=== PATIENT | female | born 1990 | race Two or more races ===

== ENCOUNTER 2017-07-01 14:46 | Emergency (ER) | payer SELFPAY ==
[2017-07-01 14:54] VITALS: BP 115/71; PULSE 90; TEMP 98.3; BMI 24.9
[2017-07-01] MEDS ORDERED: ceFAZolin 2 GRAM PREMIX BAG IVPB STA (15:45)
[2017-07-01] MEDS ORDERED: KETOROLAC TROMETHAMINE 30 MG/1 ML VIAL IVPUSH ONE (15:47)
[2017-07-01] MEDS ORDERED: KETOROLAC TROMETHAMINE 30 MG/1 ML VIAL ONE (15:50)
[2017-07-01] MEDS ORDERED: CEFTRIAXONE 100 ML IVPB ONE (15:53)
--- NOTE | 2017-07-01 15:59 | PDOC ---
History of Present Illness - General Chief Complaint: Bite Stated Complaint: POSSIBLE INSECT BITE Time Seen by Provider: 07/01/17 15:20 History Source: Patient Exam Limitations: No Limitations - History of Present Illness Initial Comments: 07/01/17 15:47 27 yr female with no PMHX c/o painful red swollen right hand , started with insect bite 3 days ago. Pt noticed redness and swelling today. no fever or chills. Severity: Yes: moderate Location: reports: extremities (right hand ) Past History - Past Medical History Allergies/Adverse Reactions: Allergies Allergy/AdvReac Type Severity Reaction Status Date / Time Shellfish Allergy Verified 07/01/17 14:53 Home Medications: Ambulatory Orders Cephalexin [Keflex] 250 mg PO QID #28 capsule 07/01/17 Other medical history: DENIES. - Immunization History Immunization Up to Date: Yes - Psycho/Social/Smoking Cessation Hx Anxiety: No Suicidal Ideation: No Smoking Status: No Smoking History: Never smoked Number of Cigarettes Smoked Daily: 0 Hx Alcohol Use: Yes Drug/Substance Use Hx: No Substance Use Type: Alcohol Review of Systems - Review of Systems Able to Perform ROS?: Yes Comments:: 07/01/17 15:48 Is the patient limited Luxembourgish proficient: No Constitutional: No: Symptoms Reported HEENTM: No: Symptoms Reported Respiratory: No: Symptoms reported Cardiac (ROS): No: Symptoms Reported ABD/GI: No: Symptoms Reported : No: Symptoms Reported Musculoskeletal: Yes: See HPI *Physical Exam - Vital Signs Last Vital Signs Temp Pulse Resp BP Pulse Ox 98.3 F 90 18 115/71 100 07/01/17 14:51 07/01/17 14:51 07/01/17 14:51 07/01/17 14:51 07/01/17 14:51 - Physical Exam General Appearance: Yes: Nourished, Appropriately Dressed HEENT: positive: EOMI, VIANCA Musculoskeletal: positive: Normal Inspection Extremity: positive: Normal Capillary Refill, Tender, Swelling, Erythema, Other (right hand with lateral area 1cm abscess with surround erythema radiating to wrist , nv intact, FROM ) Integumentary: positive: Normal Color, Dry, Warm Neurologic: positive: Fully Oriented, Alert, Normal Mood/Affect, Normal Response , Motor Strength 5/5 Medical Decision Making - Medical Decision Making 07/01/17 15:49 cc: red swollen hand with insect bite that is now an abscess no fever or chills nv intact FROM afebrile non toxic will give one dose IVAB ancef 2gm will give toradol IVx1 for pain will dc home with keflex and 48hr follow up *DC/Admit/Observation/Transfer Diagnosis at time of Disposition: Cellulitis Qualifiers: Site of cellulitis: extremity Site of cellulitis of extremity: upper extremity Laterality: right Qualified Code(s): L03.113 - Cellulitis of right upper limb - Discharge Dispostion Disposition: HOME Condition at time of disposition: Good - Prescriptions Prescriptions: Cephalexin [Keflex] 250 mg PO QID #28 capsule - Patient Instructions Additional Instructions: keep the hand elevated in the sling at all times except to bathe and sleep take motrin 800mg every 8hrs for pain take the next dose of antibiotic tonight before bed and for the next 7 days return in 48hrs for follow up or see your primary care doctor in 48hrs return to ER if fever, drainage, increased redness or pain
[2017-07-01] MEDS ORDERED: CEFAZOLIN (PRE-DOCKED) 50 ML IVPB ONE (16:00)
== END 2017-07-01 17:02 | disposition home or self-care (01) ==
LOC: JERFT 14:46 → SUPCPDRO 14:46 → JERFT 17:02
PROC: 3E0333Z Introduction of Anti-inflammatory into Peripheral Vein, Percutaneous Approach (ICD-10-PCS; principal; 2017-07-01)
PROC: 3E03329 Introduction of Other Anti-infective into Peripheral Vein, Percutaneous Approach (ICD-10-PCS; 2017-07-01)
DX: S60.561A Insect bite (nonvenomous) of right hand, initial encounter (principal); L03.113 Cellulitis of right upper limb; W57.XXXA Bitten or stung by nonvenomous insect and other nonvenomous arthropods, initial encounter; Y93.89 Activity, other specified; Y92.89 Other specified places as the place of occurrence of the external cause; Y99.8 Other external cause status
CPT/HCPCS: 99281-25

== ENCOUNTER 2017-07-03 08:45 | Inpatient (IN) | payer SELFPAY ==
[2017-07-03 09:01] VITALS: BMI 25.7
--- NOTE | 2017-07-03 09:16 | PDOC ---
History of Present Illness - General Chief Complaint: Wound Infection Stated Complaint: REVISIT Time Seen by Provider: 07/03/17 08:59 History Source: Patient Exam Limitations: No Limitations - History of Present Illness Initial Comments: 07/03/17 09:12 27 yr female no PMHX with pain and swelling with abscess to right hand started 4 days ago from insect bite. Pt was seen in ER and started on antibiotics ( keflex and IV Ancef in ER). Pt here for wound check. Pt had been elvating hand in the sling. pt states today no fever or chills, swelling and redness is getting worse. Pt right hand dominant. 07/03/17 11:21 Timing/Duration: reports: getting worse Location: reports: hands (right dorsal surface ) Past History - Past Medical History Allergies/Adverse Reactions: Allergies Allergy/AdvReac Type Severity Reaction Status Date / Time Shellfish Allergy Verified 07/03/17 08:56 Home Medications: Ambulatory Orders Cephalexin [Keflex] 250 mg PO QID #28 capsule 07/01/17 Ibuprofen 600 mg PO TID PRN #20 tablet 07/01/17 Other medical history: denies - Immunization History Immunization Up to Date: Yes - Psycho/Social/Smoking Cessation Hx Anxiety: No Suicidal Ideation: No Smoking Status: No Smoking History: Never smoked Number of Cigarettes Smoked Daily: 0 Information on smoking cessation initiated: No Hx Alcohol Use: No Drug/Substance Use Hx: No Substance Use Type: None *Physical Exam - Vital Signs Last Vital Signs Temp Pulse Resp BP Pulse Ox 98 F 67 18 112/68 100 07/03/17 08:54 07/03/17 08:54 07/03/17 08:54 07/03/17 08:54 07/03/17 08:54 - Physical Exam General Appearance: Yes: Nourished, Appropriately Dressed HEENT: positive: EOMI, VIANCA Neck: positive: Supple Respiratory/Chest: positive: Lungs Clear, Normal Breath Sounds. negative: Chest Tender Cardiovascular: positive: Regular Rhythm, Regular Rate Musculoskeletal: positive: Normal Inspection Extremity: positive: Normal Capillary Refill, Normal Inspection, Normal Range of Motion, Tender, Swelling (right hand dorsal surface with indurated abscess [id number], draining yellow green pus , no streaking up arm , swelling noted to the fingers , nv intact) Integumentary: positive: Normal Color, Dry, Warm Neurologic: positive: Fully Oriented, Alert, Normal Mood/Affect, Normal Response , Motor Strength 5/5 Procedures - Incision and Drainage I&D Site: Right: Other (hand) Betadine cleansed: Yes Anesthesia: 1% Lidocaine Volume(ml): 4 Blade Size: 10 Attempts: 1 Complications: none Dressing: Yes ED Treatment Course - LABORATORY CBC & Chemistry Diagram: 07/03/17 09:50 07/03/17 09:50 - Consult/PCP Time Called: 09:18 (paged [phone] ) Case discussed with consulting physician: Rober Grimes Consult Reason/Comments: spoke to he will consult on pt in hospital today Medical Decision Making - Medical Decision Making 07/03/17 09:21 right hand abscess [id number] dorsal surface laterally draining yellow green pus nv intact swelling to fingers noted limited ROM of her fingers, decreased ability to fully make a fist 07/03/17 10:10 I have paged to discuss the case , for possible admission 07/03/17 10:12 07/03/17 10:57 seen and examined by in the ER agrees with plan to admit for IVAB hand consultation 07/03/17 11:22 spoke to agrees with plan to admit IVAB, warm compresses 4x day and keep hand elevated. pt agrees with plan and will be admitted to the hospital . *DC/Admit/Observation/Transfer Diagnosis at time of Disposition: Abscess Cellulitis Qualifiers: Site of cellulitis: extremity Site of cellulitis of extremity: upper extremity Laterality: right Qualified Code(s): L03.113 - Cellulitis of right upper limb - Discharge Dispostion Admit: Yes - Referrals Referrals: Silvino Dimas MD [Primary Care Provider] -
[2017-07-03 10:12] LABS: BASOPHIL 0.3 % (0-2.0); EOSINOPHIL 1.5 % (0-4.5); MCH 30.4 pg (25.7-33.7); MCHC 33.9 g/dl (32.0-36.0); MEAN CELL VOLUME 89.8 fl (80-96); MEAN PLT VOLUME 8.2 fl (7.5-11.1); NEUTROPHILS 74.5 % (42.8-82.8); PLATELET COUNT 210 K/MM3 (134-434); WHITE BLOOD COUNT 7.8 K/mm3 (4.0-10.0)
[2017-07-03 10:27] LABS: CALCIUM 9.1 mg/dL (8.5-10.1)
[2017-07-03 10:33] LABS: ALBUMIN 3.7 g/dl (3.4-5.0); ALK PHOS 75 U/L (45-117); ANION GAP 7 (8-16); BILIRUBIN,TOTAL 0.6 mg/dL (0.2-1.0); CO2 30 mmol/L (21-32); CREATININE 0.8 mg/dL (0.55-1.02); GLUCOSE,RANDOM 59 mg/dL (74-106); SGOT/AST 10 U/L (15-37); SGPT/ALT 12 U/L (12-78); TOT PROT 6.7 g/dl (6.4-8.2)
[2017-07-03] MEDS ORDERED: SULFAMETHOXAZOLE/TRIMETHOPRIM 800MG/160MG D.S. TABLET PO ONE (10:48)
[2017-07-03] MEDS ORDERED: SULFAMETHOXAZOLE/TRIMETHOPRIM 800MG/160MG D.S. TABLET ONE (10:55)
[2017-07-03] MEDS ORDERED: VANCOMYCIN 1,000 MG in DEXTROSE 5%-WATER - 250 ML IVPB STA (10:59)
[2017-07-03] MEDS ORDERED: VANCOMYCIN 1 GRAM (PRE-DOCKED) 250 ML IVPB ONE ×3 (11:02→11:25)
--- NOTE | 2017-07-03 11:48 | PDOC ---
*Physical Exam - Vital Signs Last Vital Signs Temp Pulse Resp BP Pulse Ox 98 F 67 18 112/68 100 07/03/17 08:54 07/03/17 08:54 07/03/17 08:54 07/03/17 08:54 07/03/17 08:54 - Physical Exam Comments: 07/03/17 11:43 afebrile. Right dorsal hand abscess with fluctuance over the Orth and fifth metacarpals, status post incision and drainage still with persistent purulent discharge. The fluctuance tracks proximally to the base of the fifth metacarpal, with surrounding soft tissue swelling and cellulitis extending to the mid forearm circumferentially. Full range of motion of the wrist and fingers, neurovascularly intact. ED Treatment Course - LABORATORY CBC & Chemistry Diagram: 07/03/17 09:50 07/03/17 09:50 - ADDITIONAL ORDERS Additional order review: Laboratory Results 07/03/17 09:50 Sodium 142 Potassium 3.9 Chloride 105 Carbon Dioxide 30 Anion Gap 7 L BUN 12 Creatinine 0.8 Creat Clearance w eGFR > 60 Random Glucose 59 L D Calcium 9.1 Total Bilirubin 0.6 D AST 10 L ALT 12 D Alkaline Phosphatase 75 D Total Protein 6.7 Albumin 3.7 07/03/17 09:50 RBC 4.61 MCV 89.8 MCHC 33.9 RDW 14.0 D MPV 8.2 Neutrophils % 74.5 Lymphocytes % 15.1 Monocytes % 8.6 Eosinophils % 1.5 Basophils % 0.3 - Medications Given in the ED: ED Medications Discontinued Medications Generic Name Dose Route Start Last Admin Trade Name Freq PRN Reason Stop Dose Admin Oxycodone/Acetaminophen 1 combo 07/03/17 09:11 07/03/17 09:14 Percocet 5/325 - PO 07/03/17 09:12 1 combo ONCE ONE Administration Trimethoprim/Sulfamethoxazole 1 each 07/03/17 10:48 07/03/17 11:39 Bactrim Ds - PO 07/03/17 10:49 Not Given ONCE ONE - Consult/PCP Time Called: 09:18 (paged [phone] ) Case discussed with consulting physician: Rober Grimes Consult Reason/Comments: spoke to he will consult on pt in hospital today Medical Decision Making - Medical Decision Making 07/03/17 11:44 Patient seen and evaluated with the nurse practitioner. I agree with the overall evaluation, assessment, and management with the following summary of visit: Healthy 27-year-old female for his second visit of infected insect bite to right hand, now complicated by abscess with induration/fluctuance and tracking cellulitis circumferentially to the right arm. Neurovascularly intact, no crepitus to suggest deep tissue infection, no joint pathology. Labs, cultures Incision and drainage IV antibiotics Hand consulted Admission *DC/Admit/Observation/Transfer Diagnosis at time of Disposition: Abscess Cellulitis Qualifiers: Site of cellulitis: extremity Site of cellulitis of extremity: upper extremity Laterality: right Qualified Code(s): L03.113 - Cellulitis of right upper limb - Referrals Referrals: Silvino Dimas MD [Primary Care Provider] - - Patient Instructions - Post Discharge Activity
--- NOTE | 2017-07-03 11:57 | HP ---
CHIEF COMPLAINT: R hand swelling after insect bite PCP: None HISTORY OF PRESENT ILLNESS: 27 yo F w no significant PMH presented to the ED with R hand tenderness, redness , and swelling x 5 days. Patient recalls that a bug got in her car while driving and bit her R hand. The medial dorsal side of R hand started to swell and become red shortly after. Patient was seen in [facility] ED and was given ancef x 1 and discharged home on keflex but with no relief. The worsening swelling and pain prompted her to re-visit the ED today. Denies fever, chills, n/v, chest pain, sob, abdominal pain, weakness. ER course was notable for: (1) vancomycin x 1 (2) afrebile and lab works wnl (3) hand surgery consulted Recent Travel: Denies PAST MEDICAL HISTORY: None PAST SURGICAL HISTORY: None Social History: Smoking: Denies Alcohol: Social Drugs: Denies Family History: Non-contributory Allergies Shellfish Allergy (Verified 07/03/17 08:56) HOME MEDICATIONS: Home Medications Medication Instructions Recorded Cephalexin [Keflex] 250 mg PO QID #28 capsule 07/01/17 Ibuprofen 600 mg PO TID PRN #20 tablet 07/01/17 REVIEW OF SYSTEMS CONSTITUTIONAL: Absent: fever, chills, diaphoresis, generalized weakness, malaise, loss of appetite, weight change HEENT: Absent: rhinorrhea, nasal congestion, throat pain, throat swelling, difficulty swallowing, mouth swelling, ear pain, eye pain, visual changes CARDIOVASCULAR: Absent: chest pain, syncope, palpitations, irregular heart rate, lightheadedness , peripheral edema RESPIRATORY: Absent: cough, shortness of breath, dyspnea with exertion, orthopnea, wheezing, stridor, hemoptysis GASTROINTESTINAL: Absent: abdominal pain, abdominal distension, nausea, vomiting, diarrhea, constipation, melena, hematochezia GENITOURINARY: Absent: dysuria, frequency, urgency, hesitancy, hematuria, flank pain, genital pain MUSCULOSKELETAL: R hand pain and swelling Absent: myalgia, arthralgia, joint swelling, back pain, neck pain SKIN: Absent: rash, itching, pallor HEMATOLOGIC/IMMUNOLOGIC: Absent: easy bleeding, easy bruising, lymphadenopathy, frequent infections ENDOCRINE: Absent: unexplained weight gain, unexplained weight loss, heat intolerance, cold intolerance NEUROLOGIC: Absent: headache, focal weakness or paresthesias, dizziness, unsteady gait, seizure, mental status changes, bladder or bowel incontinence PSYCHIATRIC: Absent: anxiety, depression, suicidal or homicidal ideation, hallucinations. PHYSICAL EXAMINATION Last Vital Signs Temp Pulse Resp BP Pulse Ox 98 F 67 18 112/68 100 07/03/17 08:54 07/03/17 08:54 07/03/17 08:54 07/03/17 08:54 07/03/17 08:54 GENERAL: AAO x 3, in no acute distress. LUNGS: CTAB HEART: RRR, normal S1 and S2 without murmur, rub or gallop. ABDOMEN: Soft, nontender, not distended, normoactive bowel sounds, no guarding, no rebound, no masses. UPPER EXTREMITIES: 5 x 5 cm in area with visible portal of entry (bug bite) oozing brown/white pus, no crepitus, Erythematous and edematous R medial dorsal hand, Unable to make a fist CBCD WBC 7.8 K/mm3 (4.0-10.0) 07/03/17 09:50 RBC 4.61 M/mm3 (3.60-5.2) 07/03/17 09:50 Hgb 14.0 GM/dL (10.7-15.3) 07/03/17 09:50 Hct 41.4 % (32.4-45.2) 07/03/17 09:50 MCV 89.8 fl (80-96) 07/03/17 09:50 MCHC 33.9 g/dl (32.0-36.0) 07/03/17 09:50 RDW 14.0 % (11.6-15.6) D 07/03/17 09:50 Plt Count 210 K/MM3 (134-434) 07/03/17 09:50 MPV 8.2 fl (7.5-11.1) 07/03/17 09:50 CMP Sodium 142 mmol/L (136-145) 07/03/17 09:50 Potassium 3.9 mmol/L (3.5-5.1) 07/03/17 09:50 Chloride 105 mmol/L (98-107) 07/03/17 09:50 Carbon Dioxide 30 mmol/L (21-32) 07/03/17 09:50 Anion Gap 7 (8-16) L 07/03/17 09:50 BUN 12 mg/dL (7-18) 07/03/17 09:50 Creatinine 0.8 mg/dL (0.55-1.02) 07/03/17 09:50 Creat Clearance w eGFR > 60 (>60) 07/03/17 09:50 Calcium 9.1 mg/dL (8.5-10.1) 07/03/17 09:50 Total Bilirubin 0.6 mg/dL (0.2-1.0) D 07/03/17 09:50 AST 10 U/L (15-37) L 07/03/17 09:50 ALT 12 U/L (12-78) D 07/03/17 09:50 Alkaline Phosphatase 75 U/L (45-117) D 07/03/17 09:50 Total Protein 6.7 g/dl (6.4-8.2) 07/03/17 09:50 Albumin 3.7 g/dl (3.4-5.0) 07/03/17 09:50 ASSESSMENT/PLAN: 27 yo F admitted to med-surg for R hand dorsal abscess I&D. R medial-dorsal hand cellulitis with abscess - Worsening, extending proximally towards forearm - Received vancomycin x 1 dose in ED - Start unasyn 3g Q6H - Oxycodone 5mg Q4H for pain control FEN - Fluid not indicated - Normal lytes - Regular diet Prophylaxis - DVT: early ambulation Dispo - Dr. Grimes will assess the patient for I&D in the PM - Discharge planning, transition to augmentin upon discharge [facility] PGY2 Pager: [phone] Visit type - Emergency Visit Emergency Visit: Yes ED Registration Date: 07/03/17 Care time: The patient presented to the Emergency Department on the above date and was hospitalized for further evaluation of their emergent condition. - New Patient This patient is new to me today: Yes Date on this admission: 07/03/17 - Critical Care Critical Care patient: No
--- NOTE | 2017-07-03 12:08 | HP ---
CHIEF COMPLAINT: swelling in her right hand after insect bite PCP:DR. Dimas HISTORY OF PRESENT ILLNESS: 27 Year old female with no past medical history who presented to the ED with 5 days history of swelling and redness in her right medial dorsal hand. Patient reported insect bite last while she was driving. she start itching and the swollen started next day and worsen over the last few days. Patient was seen [facility] ED and antibiotics was given to her ( ancef x 1 and discharged home on keflex) with no improvement. The worsening swelling and pain prompted her to re-visit the ED today. Patient denied seeing any tick after the insect bite. She Denies fever, chills, n/v, chest pain, sob, abdominal pain, weakness. ER course was notable for: (1) vancomycin x 1 (2) afrebile and lab works wnl (3) hand surgery consulted Recent Travel: None PAST MEDICAL HISTORY: None PAST SURGICAL HISTORY: None Social History: Smoking:denies Alcohol: 4 [place] on the weekend Drugs: She used to smoke weeds Family History: Unremarkable Allergies: Shellfish Allergy (Verified 07/03/17 08:56) HOME MEDICATIONS: Home Medications Medication Instructions Recorded Cephalexin [Keflex] 250 mg PO QID #28 capsule 07/01/17 Ibuprofen 600 mg PO TID PRN #20 tablet 07/01/17 REVIEW OF SYSTEMS CONSTITUTIONAL: Absent: fever, chills, diaphoresis, generalized weakness, malaise, loss of appetite, weight change HEENT: Absent: rhinorrhea, difficulty swallowing, mouth swelling, ear pain, eye pain , visual changes CARDIOVASCULAR: Absent: chest pain, syncope, palpitations, irregular heart rate, lightheadedness , peripheral edema RESPIRATORY: Absent: cough, shortness of breath, dyspnea with exertion, orthopnea, wheezing, stridor, hemoptysis GASTROINTESTINAL: Absent: abdominal pain, abdominal distension, nausea, vomiting, diarrhea, constipation, melena, hematochezia GENITOURINARY: Absent: dysuria, frequency, urgency, hesitancy, hematuria, flank pain, genital pain MUSCULOSKELETAL: Absent: myalgia, arthralgia, joint swelling, back pain, neck pain SKIN: Absent: rash, itching and redness at the abscess site pallor HEMATOLOGIC/IMMUNOLOGIC: Absent: easy bleeding, easy bruising, lymphadenopathy, frequent infections ENDOCRINE: Absent: unexplained weight gain, unexplained weight loss, heat intolerance, cold intolerance NEUROLOGIC: Absent: headache, focal weakness or paresthesias, dizziness, unsteady gait, seizure, mental status changes, bladder or bowel incontinence PSYCHIATRIC: Absent: anxiety, depression, suicidal or homicidal ideation, hallucinations. PHYSICAL EXAMINATION Vital Signs - 24 hr 07/03/17 08:54 Temperature 98 F Pulse Rate 67 Respiratory 18 Rate Blood Pressure 112/68 O2 Sat by Pulse 100 Oximetry (%) GENERAL: Awake, alert, and fully oriented, in no acute distress. HEAD: Normal with no signs of trauma. EYES: Pupils equal, sclera anicteric, conjunctiva clear. No lid lag. EARS, NOSE, THROAT: Ears normal, nares patent,. Moist mucous membranes. NECK: Normal range of motion, supple without lymphadenopathy, JVD, or masses. LUNGS: Breath sounds equal, clear to auscultation bilaterally. No wheezes, and no crackles. No accessory muscle use. HEART: Regular rate and rhythm, normal S1 and S2 without murmur, rub or gallop. ABDOMEN: Soft, nontender, not distended, normoactive bowel sounds, no guarding, no rebound, no masses. No hepatomegaly or splenomegaly. MUSCULOSKELETAL: Normal range of motion at all joints except the right hand limited due to swelling and pain. No bony deformities or tenderness. No CVA tenderness. UPPER EXTREMITIES: 2+ pulses, warm, well-perfused. No cyanosis. No clubbing. right hand abscess [id number] dorsal surface laterally draining yellow green pus nv intact swelling to fingers noted limited ROM of her fingers, decreased ability to fully make a fist LOWER EXTREMITIES: 2+ pulses, warm, well-perfused. No calf tenderness. No peripheral edema. NEUROLOGICAL: Normal speech. PSYCHIATRIC: Cooperative. Good eye contact. Appropriate mood and affect. SKIN: Warm, dry, normal turgor, no rashes , normal capillary refill. Laboratory Results - last 24 hr 07/03/17 07/03/17 07/03/17 09:50 09:50 11:35 WBC 7.8 RBC 4.61 Hgb 14.0 Hct 41.4 MCV 89.8 MCH 30.4 MCHC 33.9 RDW 14.0 D Plt Count 210 MPV 8.2 Neutrophils % 74.5 Lymphocytes % 15.1 Monocytes % 8.6 Eosinophils % 1.5 Basophils % 0.3 Sodium 142 Potassium 3.9 Chloride 105 Carbon Dioxide 30 Anion Gap 7 L BUN 12 Creatinine 0.8 Creat Clearance w eGFR > 60 Random Glucose 59 L D Calcium 9.1 Total Bilirubin 0.6 D AST 10 L ALT 12 D Alkaline Phosphatase 75 D Total Protein 6.7 Albumin 3.7 Urine HCG, Qual Negative ASSESSMENT/PLAN: 27 Year Old femal with no PMX who returned to the ED with 5 days h/o right hand medial dorsal abscess after insect bite. She was admitted to [facility] for further management. # Right medical dorsal hand cellulitis with abscess * worsening symptoms despite out patient Antibiotics treatment * swollen extended towards the fingers and the forearm * received Vancomycin one dose in the ED * Start Unasyn IV 3 g Q6H * Oxycodone 5 mg PO Q4h for pain control * hand surgery was consulted for incision and drainage * * #F/E/N * F: on no fluids * E: WNL * N: regular diet #Prophylaxis * DVT: early ambulation +Dispo * Dr. Grimes will assess the patient for I&D * Discharge planning, transition to Augmentin upon discharge Visit type - Emergency Visit Emergency Visit: Yes ED Registration Date: 07/03/17 Care time: The patient presented to the Emergency Department on the above date and was hospitalized for further evaluation of their emergent condition. - New Patient This patient is new to me today: Yes Date on this admission: 07/03/17 - Critical Care Critical Care patient: No
--- NOTE | 2017-07-03 14:47 | PN ---
Teaching Attending Note Name of Resident: Jg Tamayo ATTENDING PHYSICIAN STATEMENT I saw and evaluated the patient. I reviewed the resident's note and discussed the case with the resident. I agree with the resident's findings and plan as documented. SUBJECTIVE: This is a 27-year-old woman with no significant past medical history who comes to the ER today for a wound check. She says that on 06/28, she felt itching on her right hand while driving. She thought it was an insect bite. On 07/01 the hand became red and swollen. She had no fevers or chills. She came to the ER and was diagnosed with an abscess of her right hand. She was treated with Ancef and was discharged on Keflex. She feels it has worsened despite the antibiotic. She still has no fever or chills. OBJECTIVE: Vital Signs Period Temp Pulse Resp BP Sys/Farley Pulse Ox Last 24 Hr 98 F 67-67 18-18 108-112/57-68 100-100 HEART: S1S2, RRR LUNGS: Clear ABDOMEN: Soft, non-tender, non-distended, normal BS EXTREMITIES: Right hand and forearm swollen. 3 cm x 5 cm area of fluctuance and induration with yellow drainage on dorsal surface of right hand over 4th and 5th metacarpals ASSESSMENT AND PLAN: This is a 27-year-old woman with no significant past medical history who presented to the ER for follow-up on an abscess of her right hand that was diagnosed on 07/01. 1. Right hand abscess - Failed outpatient treatment with Keflex - Given Vancomycin IV in ER - IV Unasyn - Hand surgery consult for I&D
[2017-07-03] MEDS: AMPICILLIN NA/SULBACTAM NA 3 GM in SODIUM CHLORIDE 100 ML IVPB SCH ×2 (15:55→20:49)
[2017-07-03] MEDS ORDERED: LIDOCAINE HCL 1%, 10 MG/ML (20ML VIAL) ONE (16:00)
[2017-07-03] MEDS: oxyCODONE HCL 5 MG TABLET PO PRN ×2 (16:03→21:16)
[2017-07-03] MEDS ORDERED: oxyCODONE HCL 5 MG TABLET ONE (16:05)
[2017-07-03] MEDS ORDERED: PT OWN MED DRAWER 7, Y5N ONE ×2 (17:56→20:11)
[2017-07-03] MEDS ORDERED: LIDOCAINE 2%/EPINEPHRINE 1:100000 (50 ML MD VIAL) INF ONE (21:00)
[2017-07-03] MEDS: ACETAMINOPHEN 325 MG TABLET (FP) PO PRN (21:16)
[2017-07-03] MEDS ORDERED: ACETAMINOPHEN 325 MG TABLET (FP) PO ONE (23:45)
[2017-07-03] MEDS ORDERED: oxyCODONE HCL 5 MG TABLET PO ONE (23:45)
[2017-07-04] MEDS: oxyCODONE HCL 5 MG TABLET PO PRN ×3 (01:41→21:08)
[2017-07-04] MEDS: ACETAMINOPHEN 325 MG TABLET (FP) PO PRN ×4 (01:42→21:09)
[2017-07-04] MEDS: AMPICILLIN NA/SULBACTAM NA 3 GM in SODIUM CHLORIDE 100 ML IVPB SCH ×2 (02:17→10:08)
[2017-07-04 08:31] LABS: BASOPHIL 0.2 % (0-2.0); EOSINOPHIL 1.7 % (0-4.5); MCH 30.1 pg (25.7-33.7); MCHC 33.3 g/dl (32.0-36.0); MEAN CELL VOLUME 90.3 fl (80-96); MEAN PLT VOLUME 8.4 fl (7.5-11.1); NEUTROPHILS 60.9 % (42.8-82.8); PLATELET COUNT 160 K/MM3 (134-434); RDW 13.8 % (11.6-15.6); WHITE BLOOD COUNT 5.9 K/mm3 (4.0-10.0)
--- NOTE | 2017-07-04 08:38 | PN ---
Physical Exam: SUBJECTIVE: Patient seen and examined at bed side. Right hand abscess was drained by hand surgeon, swollen is improved. Ibuprofen was given for pain. She denies fever, chills , CP, SOB, N/V/D/C. OBJECTIVE: Vital Signs Period Temp Pulse Resp BP Sys/Farley Pulse Ox Last 24 Hr 97.5 F-98.3 F 62-85 16-18 108-135/57-72 99-100 GENERAL: The patient is awake, alert, and fully oriented, in no acute distress. HEAD: Normal with no signs of trauma. EYES: PERRL, sclera anicteric, conjunctiva clear. No ptosis. ENT: Ears normal, , moist mucous membranes. NECK: Trachea midline, full range of motion, supple. LUNGS: Breath sounds equal, clear to auscultation bilaterally, no wheezes, no crackles, no accessory muscle use. HEART: Regular rate and rhythm, S1, S2 without murmur, rub or gallop. ABDOMEN: Soft, nontender, nondistended, normoactive bowel sounds, no guarding, no rebound, no hepatosplenomegaly, no masses. EXTREMITIES: 2+ pulses, warm, well-perfused, no edema. Right hand less swollen with FROM. NEUROLOGICAL: Normal speech, gait not observed. PSYCH: Normal mood, normal affect. SKIN: Warm, dry, normal turgor, no rashes or lesions noted Laboratory Results - last 24 hr 07/03/17 07/04/17 11:35 08:05 WBC 5.9 RBC 4.09 Hgb 12.3 D Hct 36.9 MCV 90.3 MCH 30.1 MCHC 33.3 RDW 13.8 Plt Count 160 D MPV 8.4 Neutrophils % 60.9 Lymphocytes % 26.2 D Monocytes % 11.0 H Eosinophils % 1.7 Basophils % 0.2 Urine HCG, Qual Negative Active Medications Generic Name Dose Route Start Last Admin Trade Name Freq PRN Reason Stop Dose Admin Acetaminophen 650 mg 07/03/17 12:02 07/04/17 06:25 Tylenol - PO 650 mg Q4H PRN Administration FEVER OR PAIN Ampicillin Sodium/Sulbactam 100 mls @ 200 mls/hr 07/03/17 15:00 07/04/17 02:17 Sodium 3 gm/ Sodium Chloride IVPB 200 mls/hr Q6H-IV JESUS Administration Oxycodone HCl 5 mg 07/03/17 13:41 07/04/17 06:25 Roxicodone - PO 5 mg Q4H PRN Administration PAIN 07/03/17 11:00 Blood - Peripheral Venous Blood Culture - Preliminary NO GROWTH OBTAINED AFTER 24 HOURS, INCUBATION TO CONTINUE FOR 4 DAYS. 07/03/17 09:11 Blood - Peripheral Venous Blood Culture - Preliminary NO GROWTH OBTAINED AFTER 24 HOURS, INCUBATION TO CONTINUE FOR 4 DAYS. 07/03/17 09:11 Abscess Wound Culture - Preliminary Presumptive Mrsa (Pbp2a Pos) ASSESSMENT/PLAN: 27 Year Old female with no PMHX who returned to the ED with 5 days h/o right hand medial dorsal abscess after insect bite. She was admitted to [facility] for I &D after failed out patient ABx # Right medical dorsal hand cellulitis with abscess * failed out patient Antibiotics treatment * swollen extended towards the fingers and the forearm, improved after I&D * received Vancomycin one dose in the ED * DC Unasyn IV 3 g Q6H per ID * hand surgery performed incision and drainage and recommend removed the dressing and apply warm pack Q4 hr , keep the arm elevated. * Wound culture shows presumptive MRSA * Blood culture did not show any growth over 24 Hr * one dose vancomycin 1 g IV started * ID consult recommended to Omid Donovan and start IV Vanco 1 gm Q12 for 7 days, Suggest HIV screening * Vanco trop tomorrow after med night 1.30 AM before the 4th dose. * Contact Isolation * IV Ibuprofen 800 mg Q8Hr PRN for pain * F/u ESR, CRP * Wound care * #F/E/N * F: on no fluids * E: WNL * N: regular diet #Prophylaxis * DVT: early ambulation +Dispo * I&D was performed by * Discharge planning, transition to clindamycin upon discharge
[2017-07-04] MEDS ORDERED: POLYETHYLENE GLYCOL 3350 119 GM BTL PO ONE (08:39)
[2017-07-04] MEDS ORDERED: PT OWN MED DRAWER 7, Y5N ONE (10:06)
[2017-07-04] MEDS ORDERED: VANCOMYCIN 1 GRAM (PRE-DOCKED) 250 ML IVPB ONE (10:30)
--- NOTE | 2017-07-04 11:20 | PN ---
Teaching Attending Note Name of Resident: Yon Dowd ATTENDING PHYSICIAN STATEMENT I saw and evaluated the patient. I reviewed the resident's note and discussed the case with the resident. I agree with the resident's findings and plan as documented. SUBJECTIVE: admitted with abscess with cellulitis of her right hand no fevers or chills didnot respond to po keflex-seen 07/01 in ED drained in ED by hand surgeon and packed Mom and brother with prior history of MRSA OBJECTIVE: Vital Signs Period Temp Pulse Resp BP Sys/Farley Pulse Ox Last 24 Hr 97.5 F-98.3 F 62-85 16-18 108-135/57-72 99-100 cor-rrr llungs clear abd soft,nt ext +swelling of the right hand, +FROM, wound packed CBC, BMP 07/04/17 08:05 07/03/17 09:50 Microbiology 07/03/17 11:00 Blood - Peripheral Venous Blood Culture - Preliminary NO GROWTH OBTAINED AFTER 24 HOURS, INCUBATION TO CONTINUE FOR 4 DAYS. 07/03/17 09:11 Blood - Peripheral Venous Blood Culture - Preliminary NO GROWTH OBTAINED AFTER 24 HOURS, INCUBATION TO CONTINUE FOR 4 DAYS. 07/03/17 09:11 Abscess Wound Culture - Preliminary Presumptive Mrsa (Pbp2a Pos) ASSESSMENT AND PLAN: MRSA abscess with cellulitis of the right hand contact isolation vancomycin wound care should be offered HIV testing esr/crp Problem List - Problems (1) MRSA infection Code(s): A49.02 - METHICILLIN RESIS STAPH INFECTION, UNSP SITE (2) Abscess Code(s): L02.91 - CUTANEOUS ABSCESS, UNSPECIFIED (3) Cellulitis Code(s): L03.90 - CELLULITIS, UNSPECIFIED Qualifiers: Site of cellulitis: extremity Site of cellulitis of extremity: upper extremity Laterality: right Qualified Code(s): L03.113 - Cellulitis of right upper limb
--- NOTE | 2017-07-04 11:23 | CONSULT ---
Consult Consult Specialty:: Infectious Diseases Reason for Consultation:: Abscess - History of Present Illness Chief Complaint: insect bite History of Present Illness: 27 year old female with no past medical history presented to the hospital yesterday for a non improving R hand abscess. She states that it started last , when she felt itching the dorsum of her right hand. She admits to scratching it multiple times, after which the presumed bite was exacerbated by swelling of her R hand and surrounding erythema. She went to the ED here at [place] on Sunday, was prescribed cephalexin and sent home. Patient reports that the abscess was painful and not improving on antibiotics, so she returned yesterday. The abscess was drained and cultured (MRSA). Patient states that she has vomited twice, but has not had nausea for the majority of the time since this started Patient denies fever, chills, chest pain, SOB, abdominal pain. Patient states she has a family history of MRSA infection. She has a pet dog. 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 HIV information not taken due to family in the room (Will f/u). She has not traveled recently and has lived in this area. Denies smoking or drinking history. - History Source History Provided By: Patient Limitations to Obtaining History: No Limitations - Alcohol/Substance Use Hx Alcohol Use: No - Smoking History Smoking history: Never smoked Aproximately how many cigarettes per day: 0 Home Medications - Allergies Allergies/Adverse Reactions: Allergies Allergy/AdvReac Type Severity Reaction Status Date / Time Shellfish Allergy Verified 07/03/17 08:56 - Home Medications Home Medications: Ambulatory Orders Cephalexin [Keflex] 250 mg PO QID #28 capsule 07/01/17 Ibuprofen 600 mg PO TID PRN #20 tablet 07/01/17 Review of Systems - Review of Systems Constitutional: reports: No Symptoms. denies: Chills, Fever Eyes: reports: No Symptoms HENT: reports: No Symptoms Neck: reports: No Symptoms Cardiovascular: reports: No Symptoms. denies: Chest Pain, Palpitations, Shortness of Breath Respiratory: reports: No Symptoms. denies: Cough, SOB, Wheezing Gastrointestinal: reports: No Symptoms. denies: Abdominal Pain, Nausea, Vomiting Musculoskeletal: reports: Extremity Pain (Pain in her R hand) Integumentary: reports: Lesions (R hand insect bite) Neurological: reports: No Symptoms Endocrine: reports: No Symptoms Hematology/Lymphatic: reports: No Symptoms Psychiatric: reports: No Symptoms Physical Exam Vital Signs: Vital Signs Temperature 98.3 F 07/04/17 05:00 Pulse Rate 62 07/04/17 05:00 Respiratory Rate 18 07/04/17 05:00 Blood Pressure 125/67 07/04/17 05:00 O2 Sat by Pulse Oximetry (%) 100 07/03/17 21:00 Constitutional: Yes: Well Nourished, No Distress, Calm Eyes: Yes: WNL, Conjunctiva Clear, EOM Intact HENT: Yes: WNL, Atraumatic, Normocephalic Neck: Yes: WNL, Supple, Trachea Midline Cardiovascular: Yes: WNL, Regular Rate and Rhythm, S1, S2. No: Gallop, Murmur, Rub Respiratory: Yes: WNL, Regular, CTA Bilaterally. No: Accessory Muscle Use, Rales, Rhonchi, SOB, Stridor, Wheezes Gastrointestinal: Yes: WNL, Normal Bowel Sounds, Soft. No: Tenderness Musculoskeletal: Yes: WNL Extremities: Yes: Other (Abscess noted on dorsum of R hand) Edema: Yes (Swelling noted R hand) Peripheral Pulses WNL: Yes Integumentary: Yes: Other (Drained remnant of abscess noted on dorsum of R hand. Not currently draining purulent fluid) Wound/Incision: Yes: Clean/Dry, Dressing Dry and Intact Neurological: Yes: WNL, Alert, Oriented, Cran Nerves II-XII Intact ...Motor Strength: WNL Psychiatric: Yes: WNL, Alert, Oriented Labs: CBC, BMP 07/04/17 08:05 Problem List - Problems (1) Abscess Code(s): L02.91 - CUTANEOUS ABSCESS, UNSPECIFIED (2) MRSA infection Code(s): A49.02 - METHICILLIN RESIS STAPH INFECTION, UNSP SITE Assessment/Plan 27 year old female with no past medical history seen by ID for drained abscess on dorsum of right hand with wound cultures positive for MRSA. -d/c unasyn as this is not adequate to cover MRSA -begin vancomycin 1g IV Q12h -place patient on contact precautions for MRSA -ordered CRP/ESR -keep wound clean/wound care -vanc level in AM
[2017-07-04] MEDS: IBUPROFEN 800 MG/8 ML IJ IVPB PRN ×2 (11:34→12:40)
--- NOTE | 2017-07-04 12:21 | PN ---
Teaching Attending Note Name of Resident: Jg Tamayo ATTENDING PHYSICIAN STATEMENT I saw and evaluated the patient. I reviewed the resident's note and discussed the case with the resident. I agree with the resident's findings and plan as documented. SUBJECTIVE: Patient has no complaints. Had I&D of right hand abscess yesterday. OBJECTIVE: Vital Signs Period Temp Pulse Resp BP Sys/Farley Pulse Ox Last 24 Hr 97.5 F-98.3 F 60-85 16-18 100-135/57-72 99-100 HEART: S1S2, RRR LUNGS: Clear ABDOMEN: Soft, non-tender, non-distended, normal BS EXTREMITIES: No edema ASSESSMENT AND PLAN: This is a 27-year-old woman with no significant past medical history who presented to the ER for follow-up on an abscess of her right hand that was diagnosed on 07/01. 1. MRSA abscess of right hand - s/p I&D 07/03 - On Vancomycin
[2017-07-04] MEDS: VANCOMYCIN 1 GRAM (PRE-DOCKED) 250 ML IVPB SCH ×2 (14:08→14:11)
[2017-07-04] MEDS ORDERED: IBUPROFEN 600 MG TABLET (FP) PO PRN (16:23)
[2017-07-04] MEDS ORDERED: DOCUSATE SODIUM 100 MG CAPSULE (FP) PO ONE (16:24)
[2017-07-05] MEDS: VANCOMYCIN 1 GRAM (PRE-DOCKED) 250 ML IVPB SCH ×2 (02:02→14:16)
--- NOTE | 2017-07-05 08:11 | PN ---
Physical Exam: SUBJECTIVE: Patient seen and examined at bed side. No acute events over night.Her right hand wound is dry and clean, swilling is better than yesterday. She denies any CP, Palpitation, fever, chills, N/V/D/C. OBJECTIVE: Vital Signs Period Temp Pulse Resp BP Sys/Farley Pulse Ox Last 24 Hr 98.0 F-98.7 F 60-61 18-20 100-139/64-68 100-100 GENERAL: The patient is awake, alert, and fully oriented, in no acute distress. HEAD: Normal with no signs of trauma. EYES: PERRL, sclera anicteric, conjunctiva clear. No ptosis. ENT: moist mucous membranes. NECK: Trachea midline, full range of motion, supple. LUNGS: Breath sounds equal, clear to auscultation bilaterally, no wheezes, no crackles, no accessory muscle use. HEART: Regular rate and rhythm, S1, S2 without murmur, rub or gallop. ABDOMEN: Soft, nontender, nondistended, normoactive bowel sounds, no guarding, no rebound, no hepatosplenomegaly, no masses. EXTREMITIES: 2+ pulses, warm, well-perfused, no edema. NEUROLOGICAL: Normal speech, gait not observed. PSYCH: Normal mood, normal affect. SKIN: Warm, dry, normal turgor, no rashes or lesions noted Laboratory Results - last 24 hr 07/04/17 07/04/17 07/04/17 08:05 15:43 15:43 WBC 5.9 RBC 4.09 Hgb 12.3 D Hct 36.9 MCV 90.3 MCH 30.1 MCHC 33.3 RDW 13.8 Plt Count 160 D MPV 8.4 Neutrophils % 60.9 Lymphocytes % 26.2 D Monocytes % 11.0 H Eosinophils % 1.7 Basophils % 0.2 ESR 7 C-Reactive Protein 0.6 H Active Medications Generic Name Dose Route Start Last Admin Trade Name Freq PRN Reason Stop Dose Admin Acetaminophen 650 mg 07/03/17 12:02 07/04/17 21:09 Tylenol - PO 650 mg Q4H PRN Administration FEVER OR PAIN Vancomycin HCl 250 mls @ 166.667 mls/hr 07/04/17 14:00 07/05/17 02:02 Vancomycin (Pre-Docked) IVPB 166.667 mls/hr BID@0200,1400 [facility] Administration Protocol Ibuprofen 600 mg 07/04/17 16:23 Motrin - PO Q6H PRN FEVER Oxycodone HCl 5 mg 07/03/17 13:41 07/04/17 21:08 Roxicodone - PO 5 mg Q4H PRN Administration PAIN ASSESSMENT/PLAN: 27 Year Old female with no PMHX who returned to the ED with 5 days h/o right hand medial dorsal abscess after insect bite. She was admitted to [facility] for I &D after failed out patient ABx # Right medical dorsal hand cellulitis with abscess * failed out patient Antibiotics treatment * swollen extended towards the fingers and the forearm, improved after I&D * received Vancomycin one dose in the ED * DC Unasyn IV 3 g Q6H per ID and start [id number] mg IV Q12 per ID * hand surgery performed incision and drainage on 07/03 and recommend removed the dressing and apply warm pack Q4 hr , keep the arm elevated. * Wound culture shows presumptive MRSA * Blood culture did not show any growth over 24 Hr * ID consult recommended to Dc Unasyn and start IV Vanco 1 gm Q12 for 7 days, Suggest HIV screening * Vanco trop tomorrow july 06 1.30 AM before the 4th dose. * Contact Isolation * Ibuprofen 600 mg PO Q6Hr PRN for pain * ESR 7, CRP 0.6 * Wound care * ID saw her today and clear her to Discharge on Clindamycin 300 mg Po TID for 5 days.(after seen the sensitivity test) #F/E/N * F: on no fluids * E: WNL * N: regular diet #Prophylaxis * DVT: early ambulation +Dispo * I&D was performed by on 07/03 * Discharge planning, transition to clindamycin upon discharge Visit type - Emergency Visit Emergency Visit: Yes ED Registration Date: 07/03/17 Care time: The patient presented to the Emergency Department on the above date and was hospitalized for further evaluation of their emergent condition. - New Patient This patient is new to me today: No - Critical Care Critical Care patient: No
[2017-07-05 08:46] LABS: BASOPHIL 0.3 % (0-2.0); EOSINOPHIL 1.7 % (0-4.5); MCH 30.6 pg (25.7-33.7); MCHC 34.3 g/dl (32.0-36.0); MEAN CELL VOLUME 89.3 fl (80-96); MEAN PLT VOLUME 8.6 fl (7.5-11.1); NEUTROPHILS 59.9 % (42.8-82.8); PLATELET COUNT 176 K/MM3 (134-434); RDW 13.5 % (11.6-15.6); WHITE BLOOD COUNT 5.6 K/mm3 (4.0-10.0)
--- NOTE | 2017-07-05 08:55 | PN ---
Progress Note, Physician History of Present Illness: Medical History 27 year old female with no past medical history presented to the hospital two days ago for a non improving R hand abscess. She states that it started last , when she felt itching the dorsum of her right hand. She admits to scratching it multiple times, after which the presumed bite was exacerbated by swelling of her R hand and surrounding erythema. She went to the ED here at [place] on Sunday, was prescribed cephalexin and sent home. Patient reports that the abscess was painful and not improving on antibiotics, so she returned yesterday. The abscess was drained and cultured (MRSA). Patient states that she has vomited twice, but has not had nausea for the majority of the time since this started Patient denies fever, chills, chest pain, SOB, abdominal pain. Patient states she has a family history of MRSA infection. She has a pet dog. 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 HIV information not taken due to family in the room (Will f/u). She has not traveled recently and has lived in this area. Denies smoking or drinking history. Patient seen and examined at bedside. Patient feels better, no current pain in her R hand. Reports decreased swelling. Denies drainage. Denies fevers, chills, nausea, vomiting, chest pain, SOB, abdominal pain. - Current Medication List Current Medications: Active Medications Acetaminophen (Tylenol -) 650 mg PO Q4H PRN PRN Reason: FEVER OR PAIN Last Admin: 07/04/17 21:09 Dose: 650 mg Vancomycin HCl (Vancomycin (Pre-Docked)) 250 mls @ 166.667 mls/hr IVPB BID@0200 ,1400 JESUS PRN Reason: Protocol Last Admin: 07/05/17 02:02 Dose: 166.667 mls/hr Ibuprofen (Motrin -) 600 mg PO Q6H PRN PRN Reason: FEVER Oxycodone HCl (Roxicodone -) 5 mg PO Q4H PRN PRN Reason: PAIN Last Admin: 07/04/17 21:08 Dose: 5 mg - Objective Vital Signs: Vital Signs Temperature 98.7 F 07/05/17 06:25 Pulse Rate 61 07/05/17 06:25 Respiratory Rate 18 07/05/17 06:25 Blood Pressure 139/64 07/05/17 06:25 O2 Sat by Pulse Oximetry (%) 100 07/04/17 21:00 Constitutional: Yes: Well Nourished, No Distress, Calm Eyes: Yes: WNL, Conjunctiva Clear, EOM Intact HENT: Yes: WNL, Atraumatic, Normocephalic Neck: Yes: WNL, Supple, Trachea Midline Cardiovascular: Yes: WNL, Regular Rate and Rhythm, S1, S2. No: Gallop, Murmur, Rub Respiratory: Yes: WNL, Regular, CTA Bilaterally. No: Rales, Stridor, Wheezes Gastrointestinal: Yes: WNL, Normal Bowel Sounds, Soft. No: Tenderness Musculoskeletal: Yes: WNL Extremities: Yes: Other (Dry dressing applied on dorsum of R hand) Edema: No Peripheral Pulses WNL: Yes Integumentary: Yes: Incision (Dry dressing applied on dorsum of R hand, not draining any fluid, no surrounding swelling) Wound/Incision: Yes: Clean/Dry Neurological: Yes: WNL, Alert, Oriented, Cran Nerves II-XII Intact ...Motor Strength: WNL Psychiatric: Yes: WNL, Alert, Oriented Labs: CBC, BMP 07/05/17 07:00 Problem List - Problems (1) Abscess Code(s): L02.91 - CUTANEOUS ABSCESS, UNSPECIFIED (2) MRSA infection Code(s): A49.02 - METHICILLIN RESIS STAPH INFECTION, UNSP SITE Assessment/Plan 27 year old female with no past medical history seen by ID for drained abscess on dorsum of right hand with wound cultures positive for MRSA. -patient appears clinically improved. Wound is dry, not draining fluid. Swelling has subsided in the R hand. There is little to no pain or tenderness. No surrounding cellulitis -contact precautions for MRSA -keep wound clean/wound care -proper hand hygiene advised and potential for transmission of MRSA with contact -discharge on outpatient oral clindamycin 300mg TID 5 days
[2017-07-05 09:10] LABS: ANION GAP 7 (8-16); CALCIUM 8.9 mg/dL (8.5-10.1); CO2 27 mmol/L (21-32); GLUCOSE,RANDOM 74 mg/dL (74-106)
[2017-07-05 09:12] LABS: CREATININE 0.6 mg/dL (0.55-1.02)
--- NOTE | 2017-07-05 14:52 | PN ---
Teaching Attending Note Name of Resident: Yon Dowd ATTENDING PHYSICIAN STATEMENT I saw and evaluated the patient. I reviewed the resident's note and discussed the case with the resident. I agree with the resident's findings and plan as documented. SUBJECTIVE:VaNCOMYCIN OBJECTIVE:HAND IMPROVED DRAINAGE NO CELLULITIS ASSESSMENT AND PLAN: Microbiology 07/03/17 09:11 Abscess Gram Stain - Final 07/03/17 09:11 Abscess Wound Culture - Final Mr S Aureus 07/03/17 21:56 Abscess Wound Culture - Preliminary Presumptive Mrsa (Pbp2a Pos) Laboratory Tests 07/05/17 07/05/17 07/05/17 07:00 07:00 13:20 WBC 5.6 Hgb 13.2 Plt Count 176 Anion Gap 7 L BUN 9 D Creatinine 0.6 D HIV 1&2 Antibody Screen Pending HIV P24 Antigen Pending ASSESSMENT MRSA ssti PLAN DISCHARGE ON ORAL CLINDAYMCIN 300MTID FOR 5 DAYS ADVISED ABOUT HAND HYGIENE AND POTENTIAL FOR TRANSMISSION WITH CONTACT PERSONS DORIAN NUÑEZ
--- NOTE | 2017-07-05 15:07 | PN ---
Teaching Attending Note Name of Resident: Jg Tamayo ATTENDING PHYSICIAN STATEMENT I saw and evaluated the patient. I reviewed the resident's note and discussed the case with the resident. I agree with the resident's findings and plan as documented. SUBJECTIVE: OBJECTIVE: Vital Signs Period Temp Pulse Resp BP Sys/Farley Pulse Ox Last 24 Hr 97.8 F-98.7 F 60-61 18-20 110-139/64-70 100-100 ASSESSMENT AND PLAN:
[2017-07-05 15:20] LABS: HIV 1 & 2 AB NEGATIVE; HIV 1 AGp24 NEGATIVE
[2017-07-05 15:31] VITALS: BP 115/62; PULSE 72; TEMP 99.1
--- NOTE | 2017-07-05 18:19 | DS ---
Physical Exam: SUBJECTIVE: Patient seen and examined at bed side . She is stable to be discharged home on oral antibiotics. OBJECTIVE: Vital Signs Period Temp Pulse Resp BP Sys/Farley Pulse Ox Last 24 Hr 97.8 F-99.1 F 60-72 18-18 110-139/62-70 100-100 PHYSICAL EXAM GENERAL: The patient is awake, alert, and fully oriented, in no acute distress. HEAD: Normal with no signs of trauma. EYES: PERRL, extraocular movements intact, sclera anicteric, conjunctiva clear. ENT: Ears normal, nares patent, oropharynx clear without exudates, moist mucous membranes. NECK: Trachea midline, full range of motion, supple. LUNGS: Breath sounds equal, clear to auscultation bilaterally, no wheezes, no crackles, no accessory muscle use. HEART: Regular rate and rhythm, S1, S2 without murmur, rub or gallop. ABDOMEN: Soft, nontender, nondistended, normoactive bowel sounds, no guarding, no rebound, no hepatosplenomegaly, no masses. EXTREMITIES: 2+ pulses, warm, well-perfused, no edema. NEUROLOGICAL: Cranial nerves II through XII grossly intact. Normal speech, gait not observed. PSYCH: Normal mood, normal affect. SKIN: Warm, dry, normal turgor, no rashes or lesions noted. LABS Laboratory Results - last 24 hr 07/05/17 07/05/17 07/05/17 07:00 07:00 13:20 WBC 5.6 RBC 4.31 Hgb 13.2 Hct 38.5 MCV 89.3 MCH 30.6 MCHC 34.3 RDW 13.5 Plt Count 176 MPV 8.6 Neutrophils % 59.9 Lymphocytes % 29.5 Monocytes % 8.6 Eosinophils % 1.7 Basophils % 0.3 Sodium 139 Potassium 3.7 Chloride 105 Carbon Dioxide 27 Anion Gap 7 L BUN 9 D Creatinine 0.6 D Random Glucose 74 D Calcium 8.9 HIV 1&2 Antibody Screen Negative HIV P24 Antigen Negative Hepatitis Profile WBC 5.6 K/mm3 (4.0-10.0) 07/05/17 07:00 RBC 4.31 M/mm3 (3.60-5.2) 07/05/17 07:00 Hgb 13.2 GM/dL (10.7-15.3) 07/05/17 07:00 Hct 38.5 % (32.4-45.2) 07/05/17 07:00 MCV 89.3 fl (80-96) 07/05/17 07:00 Neutrophils % 59.9 % (42.8-82.8) 07/05/17 07:00 Lymphocytes % 29.5 % (8-40) 07/05/17 07:00 Monocytes % 8.6 % (3.8-10.2) 07/05/17 07:00 Basophils % 0.3 % (0-2.0) 07/05/17 07:00 HOSPITAL COURSE: Date of Admission:07/03/17 Date of Discharge: 07/05/17 Patient was admitted to the hospital due to an abscess on the dorsal of her right arm. she presented to the ER for wound check after failed treatment with antibiotics as out patient. The wound was incised and drained by the hand surgeon, wound culture came back positive for MRSA. She was treated with IV vancomycin 100 mg Q12 HR, after we received the the sensitivity ID clear her to be discharged on PO Clindamycin 300 mg TID for 5 days. Patient is stable and ready to discharge home. The discharge information was explained to the patient and she was informed to come to the ER if she developed any fever or her symptoms worsen. Minutes to complete discharge: 20 Discharge Summary Reason For Visit: ABSCESS, CELLULITIS Condition: Stable - Instructions Diet, Activity, Other Instructions: Take you meds As prescribed 3 time a day for the next 5 days Follow good hand hygiene Follow up with your primary care doctor within one week Come back to the emergency room if you develop fever or chills or symptoms worsen. for pain control you can use Tylenol or Ibuprofen. Referrals: Silvino Dimas MD [Primary Care Provider] - Disposition: HOME - Home Medications Comprehensive Discharge Medication List: Ambulatory Orders Clindamycin [Cleocin -] 300 mg PO TID #15 capsule 07/05/17 This patient is new to me today: No Emergency Visit: Yes ED Registration Date: 07/03/17 Care time: The patient presented to the Emergency Department on the above date and was hospitalized for further evaluation of their emergent condition. Critical Care patient: No - Discharge Referral Referred to [facility] Med P.C.: No
== END 2017-07-05 17:23 | disposition home or self-care (01) | DRG 383 ==
LOC: JER 08:45 → JERFT 08:45 → JERBED 11:20 → J5S 17:20 → J5W 07-04 15:07 → J8W 07-04 15:13
PROVIDERS: ADMIT Internal Medicine; ATTEND Internal Medicine
PROC: 0H9FXZZ Drainage of Right Hand Skin, External Approach (ICD-10-PCS; principal; 2017-07-03)
DX: L03.113 Cellulitis of right upper limb (principal); S60.561D Insect bite (nonvenomous) of right hand, subsequent encounter; A49.02 Methicillin resistant Staphylococcus aureus infection, unspecified site; L02.511 Cutaneous abscess of right hand; W57.XXXD Bitten or stung by nonvenomous insect and other nonvenomous arthropods, subsequent encounter; Z51.89 Encounter for other specified aftercare
CPT/HCPCS: 36415; 80048; 80053; 84703; 85025; 85651; 86140; 87040; 87070; 87186; 87205; 87389; 99283-25

== ENCOUNTER 2017-10-11 16:30 | Emergency (ER) | payer SELFPAY ==
--- NOTE | 2017-10-11 16:45 | PDOC ---
Rapid Medical Evaluation Time Seen by Provider: 10/11/17 16:44 Medical Evaluation: Allergies Allergy/AdvReac Type Severity Reaction Status Date / Time Shellfish Allergy Verified 10/11/17 16:44 12 16:44 The patient presents with a chief complaint of: insect bite to rt buttock, no fever, hx of staph I have performed a brief in-person evaluation of this patient. Pertinent physical exam findings: vss I have ordered the following:none The patient will proceed to the ED for further evaluation. Discharge Disposition - Diagnosis Bite - Referrals - Patient Instructions - Post Discharge Activity
[2017-10-11 16:48] VITALS: BP 123/68; PULSE 69; TEMP 98; BMI 24.9
--- NOTE | 2017-10-11 17:18 | PDOC ---
History of Present Illness - General Chief Complaint: Bite Stated Complaint: WOUND Time Seen by Provider: 10/11/17 16:44 History Source: Patient Exam Limitations: No Limitations - History of Present Illness Initial Comments: 10/11/17 17:09 Patient is a 27-year-old female with history of MRSA. Presents with 2 painful lesions to buttocks. Patient concerned that she may have MRSA again. Denies fever. Past Medical History: [Denies]. Allergies: No known allergies Medications: [None] Family History: Non-contributory Social History: Denies smoking, alcohol use, or IVDU Review of Systems GENERAL/CONSTITUTIONAL: [No fever or chills. No weakness. No weight change.] HEAD, EYES, EARS, NOSE AND THROAT: [No change in vision. No ear pain or discharge. No sore throat. ] CARDIOVASCULAR: [No chest pain or shortness of breath.] RESPIRATORY: [No cough, wheezing, or hemoptysis.] GASTROINTESTINAL: [No nausea, vomiting, diarrhea or constipation. No rectal bleeding.] GENITOURINARY: [No dysuria, frequency, or change in urination.] MUSCULOSKELETAL: [No joint or muscle swelling or pain. No neck or back pain.] SKIN AND BREASTS: [Two painful, hard lesions to the right buttock. .] NEUROLOGIC: [No headache, vertigo, loss of consciousness, or loss of sensation.] PSYCHIATRIC: [No depression or anxiety.] ENDOCRINE: [No increased thirst. No abnormal weight change.] HEMATOLOGIC/LYMPHATIC: [No anemia, easy bleeding, or history of blood clots.] ALLERGIC/IMMUNOLOGIC: [No hives or skin allergy. No latex allergy.] Physical Exam: GENERAL: [The patient is awake, alert, and fully oriented, in no acute distress. ] HEAD: [Normal with no signs of trauma.] EYES: [Pupils equal, round and reactive to light, extraocular movements intact, sclera anicteric, conjunctiva clear.] ENT: [Ears normal, nares patent, oropharynx clear without exudates. Moist mucous membranes. No uvula deviation] NECK: [Normal range of motion, supple without lymphadenopathy, JVD, or masses.] LUNGS: [Breath sounds equal, clear to auscultation bilaterally. No wheezes, and no crackles.] HEART: [Regular rate and rhythm, normal S1 and S2 without murmur, rub or gallop. ] ABDOMEN: [Soft, nontender, normoactive bowel sounds. No guarding, no rebound. No masses. No bruising or abrasions] MUSCULOSKELETAL: [Normal range of motion, no edema. No clubbing or cyanosis. No cords, erythema, or tenderness. No CVA Tenderness with fist.] SKIN: [Warm, Dry, normal turgor, no rashes . Lesions with localized induration, no fluctuance to right upper buttock.] 10/13/17 12:43 Past History - Past Medical History Allergies/Adverse Reactions: Allergies Allergy/AdvReac Type Severity Reaction Status Date / Time Shellfish Allergy Verified 10/11/17 16:44 Home Medications: Ambulatory Orders Chlorhexidine Gluconate [Hibiclens For Decolonization -] 1 applic TP DAILY #1 bottle 10/11/17 Mupirocin Cream [Bactroban 2% Cream -] 1 applic TP BID #1 tube 10/11/17 Sulfamethoxazole/Trimethoprim [Bactrim Ds -] 1 tab PO BID #14 tablet 10/11/17 COPD: No DVT: No Dementia: No - Immunization History Immunization Up to Date: Yes - Suicide/Smoking/Psychosocial Hx Smoking Status: No Smoking History: Never smoked Have you smoked in the past 12 months: No Number of Cigarettes Smoked Daily: 0 Information on smoking cessation initiated: No Hx Alcohol Use: No Drug/Substance Use Hx: No Substance Use Type: None *Physical Exam - Vital Signs Last Vital Signs Temp Pulse Resp BP Pulse Ox 98.0 F 69 146 H 123/68 100 10/11/17 16:45 10/11/17 16:45 10/11/17 16:45 10/11/17 16:45 10/11/17 16:45 Medical Decision Making - Medical Decision Making 10/11/17 17:19 A/P : Patient with 2 painful lesions to right buttocks without fluctuance beginning stages not able to D&C at this time will start patient on Bactrim and give prescription for Bactroban, Hibiclens to wash body and follow-up with infectious disease. Patient concerned because of recurrence of similar lesions to the MRSA she had in the past. . *DC/Admit/Observation/Transfer Diagnosis at time of Disposition: Skin lesion - Discharge Dispostion Disposition: HOME Condition at time of disposition: Good Admit: No - Prescriptions Prescriptions: Chlorhexidine Gluconate [Hibiclens For Decolonization -] 1 applic TP DAILY #1 bottle Mupirocin Cream [Bactroban 2% Cream -] 1 applic TP BID #1 tube Sulfamethoxazole/Trimethoprim [Bactrim Ds -] 1 tab PO BID #14 tablet - Referrals Referrals: Jose Alejandro Corbett MD [Staff Physician] - - Patient Instructions Printed Discharge Instructions: DI for Methicillin-Resistant Staph Infection ( MRSA) Additional Instructions: Please follow up with infectious disease. Antibiotics as ordered Wash daily with the hibcleanse. If any increased redness swelling or signs of infection or area needs to be drained return to ER - Post Discharge Activity Forms/Work/School Notes: Back to Work
== END 2017-10-11 17:29 | disposition home or self-care (01) ==
LOC: JERFT 16:30
DX: L98.8 Other specified disorders of the skin and subcutaneous tissue (principal)
CPT/HCPCS: 99281-25

== ENCOUNTER 2017-12-12 17:46 | Emergency (ER) | payer OTHER ==
[2017-12-12] MEDS ORDERED: DIPHTH,PERTUSS(ACELL),TET 0.5 ML DISP.SYRIN IM ONE (17:52)
[2017-12-12 17:53] VITALS: BP 126/90; PULSE 85; TEMP 98.3; BMI 24.7
--- NOTE | 2017-12-12 17:53 | PDOC ---
Rapid Medical Evaluation Time Seen by Provider: 12/12/17 17:48 Medical Evaluation: Allergies Allergy/AdvReac Type Severity Reaction Status Date / Time Shellfish Allergy Verified 10/11/17 16:44 12/12/17 17:49 I have performed a brief in-person evaluation of this patient. The patient presents with a chief complaint of: lac to R hand last night, cut by broken glass window, hx of MRSA Pertinent physical exam findings: 1 inch lac to palmar aspect of R hand, warmth , swelling I have ordered the following: tdap, upreg The patient will proceed to the ED for further evaluation. Discharge Disposition - Diagnosis Laceration - Referrals - Patient Instructions - Post Discharge Activity
--- NOTE | 2017-12-12 20:22 | PDOC ---
History of Present Illness - General Chief Complaint: Laceration Stated Complaint: LACERATION Time Seen by Provider: 12/12/17 17:48 History Source: Patient Exam Limitations: No Limitations - History of Present Illness Initial Comments: 12/12/17 20:22 Fell and landed on piece of glass causing a laceration to her right palm thenar eminence. This incident occurred last night at approximately 9 PM. was tired and did not wish to come to emergency department for evaluation. washed hand at home, came tonight for evaluation because she has had an MRSA infection to her hand last year and needed hospitalization for 3 days. Severity: reports: mild Pain Location: reports: upper extremity Method of Injury: Yes: direct blow (broken glass ) Modifying Factors: improves with: None Past History - Travel Traveled outside of the country in the last 30 days: No Close contact w/someone who was outside of country & ill: No - Past Medical History Allergies/Adverse Reactions: Allergies Allergy/AdvReac Type Severity Reaction Status Date / Time Shellfish Allergy Verified 12/12/17 17:53 Home Medications: Ambulatory Orders NK [No Known Home Medication] 12/12/17 COPD: No DVT: No Dementia: No - Immunization History Immunization Up to Date: Yes - Suicide/Smoking/Psychosocial Hx Smoking Status: No Smoking History: Never smoked Have you smoked in the past 12 months: No Number of Cigarettes Smoked Daily: 0 Information on smoking cessation initiated: No Hx Alcohol Use: No Drug/Substance Use Hx: No Substance Use Type: None Trauma Specific PMHX - Complaint Specific PMHX Arthritis: Yes Back Injury: Yes Review of Systems - Review of Systems Able to Perform ROS?: Yes Is the patient limited Polish proficient: Yes Constitutional: Yes: Symptoms Reported, See HPI, Malaise HEENTM: No: Symptoms Reported Musculoskeletal: Yes: Symptoms Reported Integumentary: Yes: Symptoms Reported, See HPI Neurological: No: Symptoms reported All Other Systems: Reviewed and Negative *Physical Exam - Vital Signs Last Vital Signs Temp Pulse Resp BP Pulse Ox 98.3 F 85 18 126/90 100 12/12/17 17:50 12/12/17 17:50 12/12/17 17:50 12/12/17 17:50 12/12/17 17:50 - Physical Exam General Appearance: Yes: Nourished, Appropriately Dressed HEENT: positive: TMs Normal Neck: positive: Supple. 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, Fully Oriented, Alert, Normal Mood/ Affect, Normal Response, Motor Strength 03/09 ED Treatment Course - ADDITIONAL ORDERS Additional order review: Laboratory Results 12/12/17 18:11 Urine HCG, Qual Negative - Medications Given in the ED: ED Medications Discontinued Medications Generic Name Dose Route Start Last Admin Trade Name Freq PRN Reason Stop Dose Admin Diphtheria/Tetanus/Acell Pertussis 0.5 ml 12/12/17 17:52 12/12/17 18:08 Boostrix - IM 12/12/17 17:53 0.5 ml .ONCE ONE Administration Progress Note - Progress Note Progress Note: Laceration to right hand, old wound - cleaned and dressed *DC/Admit/Observation/Transfer Diagnosis at time of Disposition: Laceration - Discharge Dispostion Disposition: HOME Condition at time of disposition: Stable Admit: No - Referrals - Patient Instructions Printed Discharge Instructions: DI for Abrasion Additional Instructions: Rest, keep area elevated. Avoid strenuous activity or exercise until wound is healed Soak hand 2-3 times a day in warm water and reapply bacitracin ointment until healed May change dressings as needed to keep clean - Allow water from shower to wash area thoroughly for 2-3 minutes, and pat dry upon exit of shower and replace dressing. Change his dressing daily until the wound is completely healed. May use Tylenol or Motrin for mild pain relief Followup with private physician in 2-3 days for wound check Return to emergency Department for worsening swelling, pain, redness, fevers as needed - Post Discharge Activity
== END 2017-12-12 20:33 | disposition home or self-care (01) ==
LOC: JERFT 17:46
PROC: 3E0234Z Introduction of Serum, Toxoid and Vaccine into Muscle, Percutaneous Approach (ICD-10-PCS; principal; 2017-12-12)
DX: S61.411A Laceration without foreign body of right hand, initial encounter (principal); W01.110A Fall on same level from slipping, tripping and stumbling with subsequent striking against sharp glass, initial encounter; Y93.89 Activity, other specified; Y92.038 Other place in apartment as the place of occurrence of the external cause; Y99.8 Other external cause status
CPT/HCPCS: 84703; 90715; 99281-25

== ENCOUNTER 2023-10-05 07:10 | Emergency (ER) | payer OTHER ==
[2023-10-05 08:04] VITALS: BP 122/82; PULSE 80; RESP 18; TEMP 98.2; BMI 23.3
[2023-10-05] MEDS ORDERED: FAMOTIDINE 20 MG/50 ML IVPB 20 MG/50 ML MG IVPB ONE ×2 (08:33→08:41)
[2023-10-05] MEDS ORDERED: SODIUM CHLORIDE 0.9% 500 ML INFUS.BAG IV ONE (08:33)
[2023-10-05] MEDS ORDERED: MAG HYDROX/AL HYDROX/SIMETH 30 ML UNIT-DOSE CUP PO ONE (08:34)
[2023-10-05] MEDS ORDERED: MAG HYDROX/AL HYDROX/SIMETH 30 ML UNIT-DOSE CUP ONE (08:41)
[2023-10-05 09:49] LABS: POTASSIUM 3.7 mmol/L (3.5-5.1)
[2023-10-05 09:52] LABS: ALBUMIN 4.4 g/dl (3.4-5.0); BLOOD UREA NITROGEN 21.2 mg/dL (7-18); CALCIUM 9.4 mg/dL (8.5-10.1)
[2023-10-05 09:55] LABS: CREATININE 0.8 mg/dL (0.55-1.3)
[2023-10-05 09:56] LABS: TOT PROT 7.8 g/dl (6.4-8.2)
[2023-10-05 09:57] LABS: BILIRUBIN,TOTAL 1.1 mg/dL (0.2-1)
[2023-10-05 10:13] LABS: BASO % 0.3 % (0-2.0); EOS % 0.1 % (0-4.5); HEMATOCRIT 43.5 % (32.4-45.2); HEMOGLOBIN 14.3 GM/dL (10.7-15.3); LYMPH % 17.9 % (8-40); MCHC 32.9 g/dl (32.0-36.0); MEAN CELL VOLUME 91.2 fl (80-96); MEAN PLT VOLUME 8.4 fl (7.5-11.1); MONO % 5.5 % (3.8-10.2); NEUT % 76.2 % (42.8-82.8); PLATELET COUNT 282 10^3/uL (134-434); RBC 4.77 M/mm3 (3.60-5.2); RDW 13.2 % (11.6-15.6); WHITE BLOOD COUNT 8.2 K/mm3 (4.0-10.0)
[2023-10-05] MEDS ORDERED: ACETAMINOPHEN 1000 MG/100 ML BAG IVPB ONE (10:39)
[2023-10-05] MEDS ORDERED: ACETAMINOPHEN INJECTION 100 ML IVPB ONE (11:10)
[2023-10-05] MEDS ORDERED: KETOROLAC TROMETHAMINE 30 MG/1 ML VIAL IVPUSH ONE (11:24)
[2023-10-05] MEDS ORDERED: KETOROLAC TROMETHAMINE 30 MG/1 ML VIAL ONE (11:33)
== END 2023-10-05 12:54 | disposition home or self-care (01) ==
LOC: JER 07:10
PROC: 3E033GC Introduction of Other Therapeutic Substance into Peripheral Vein, Percutaneous Approach (ICD-10-PCS; principal; 2023-10-05)
PROC: 3E033NZ Introduction of Analgesics, Hypnotics, Sedatives into Peripheral Vein, Percutaneous Approach (ICD-10-PCS; 2023-10-05)
PROC: 3E0333Z Introduction of Anti-inflammatory into Peripheral Vein, Percutaneous Approach (ICD-10-PCS; 2023-10-05)
DX: R10.13 Epigastric pain (principal); K29.70 Gastritis, unspecified, without bleeding; K82.8 Other specified diseases of gallbladder
CPT/HCPCS: 36415; 76705-TC; 80053; 83690; 84703; 85025; 99284-25